=== PATIENT | male | born 1980 | race Caucasian/White ===

== ENCOUNTER 2023-07-09 09:15 | Emergency (ER) | payer OTHER ==
[~2023-07-09] VITALS: Ht 167.6 cm; Wt 108.9 kg
[2023-07-09 09:15] VITALS: BP_SYST 134; PULSE 85; RESP 17; TEMP 98.4; O2SAT 98
[2023-07-09] MEDS ORDERED: BACITRACIN 1 GM OINT TP ONE (09:30)
[2023-07-09] MEDS ORDERED: DIPHTH,PERTUSS(ACELL),TET VAC 0.5 ML VIAL (Tdap) I.M. ONE (09:30)
[2023-07-09] MEDS ORDERED: LIDOCAINE 1% 10 MG/ML, 20 ML MDV INJ ONE (09:30)
[2023-07-09] MEDS ORDERED: ceFAZolin SODIUM 2 GM VIAL IM ONE (09:45)
[2023-07-09] MEDS ORDERED: IBUP-1971 PO (09:58)
[2023-07-09] MEDS ORDERED: CEPH250C PO (09:58)
[2023-07-09 12:50] VITALS: BP_SYST 134; PULSE 85; RESP 17; TEMP 98.4; O2SAT 98
== END 2023-07-09 10:30 | disposition home or self-care (01) ==
LOC: SED 09:15
DX: S60.450A Superficial foreign body of right index finger, initial encounter (principal); Z79.899 Other long term (current) drug therapy; W45.8XXA Other foreign body or object entering through skin, initial encounter; Y93.89 Activity, other specified; Y92.89 Other specified places as the place of occurrence of the external cause; Y99.8 Other external cause status
CPT/HCPCS: 99284; 73140; 90715; 90471; J2001